=== PATIENT | female | born 1995 ===

== ENCOUNTER 2017-11-20 14:28 | Emergency (ER) | payer OTHER ==
[2017-11-20 14:37] VITALS: RESP 20
[2017-11-20 15:52] LABS: BASO % 0.4 % (0.0-2.0); EOS % 0.3 % (0.0-4.0); HEMATOCRIT 43.6 % (34.0-47.0); LYMPH # 2.3 K/uL (1.0-4.3); LYMPH % 20.5 % (20.0-40.0); MEAN CELL VOLUME 91.7 fL (81.0-99.0); MEAN CORPUSCULAR HEMOGLOBIN 31.1 pg (27.0-31.0); MEAN PLATELET VOLUME 8.1 fL (7.2-11.7); MONO # 0.4 K/uL (0.0-0.8); MONO % 3.5 % (0.0-10.0); RED CELL DISTRIBUTION WIDTH 13.6 % (11.5-14.5); WHITE BLOOD COUNT 11.2 K/uL (4.8-10.8)
[2017-11-20 15:54] LABS: RBC URINE < 1 /hpf (0-3); URINE BILIRUBIN NEGATIVE (NEGATIVE); URINE BLOOD NEGATIVE (NEGATIVE); URINE COLOR Colorless (YELLOW); URINE GLUCOSE (UA) NORMAL (Normal); URINE KETONE NEGATIVE (NEGATIVE); URINE LEUKOCYTE ESTERASE NEG Leu/uL (Negative); URINE PROTEIN NEGATIVE (NEGATIVE); URINE UROBILINOGEN NORMAL mg/dL (0.2-1.0)
[2017-11-20 16:06] LABS: BILIRUBIN,TOTAL 0.8 mg/dL (0.2-1.3); CALCIUM 9.6 mg/dl (8.6-10.4); GFR AFRICAN-AMERICAN > 60; GLUCOSE,RANDOM 90 mg/dL (65-105); TOTAL PROTEIN 9.3 g/dL (6.3-8.3)
[2017-11-20 16:07] LABS: ALB/GLOB RATIO 1.1 (1.0-2.1); ALKALINE PHOSPHATASE 80 U/L (38-126); ALT/SGPT 21 U/L (9-52); AST/SGOT 28 U/L (14-36); BLOOD UREA NITROGEN 7 mg/dL (7-17); CARBON DIOXIDE 22 mmol/L (22-30); CHLORIDE 105 mmol/L (98-107); POTASSIUM 4.4 mmol/L (3.6-5.2); SODIUM 141 mmol/L (132-148)
[2017-11-20 16:22] LABS: T3 UPTAKE 28.9 % (23.0-41.0); T4 13.9 ug/dL (5.5-11.0)
--- NOTE | 2017-11-20 16:30 | RAD ---
HISTORY: Palpations COMPARISON: No prior. TECHNIQUE: Chest PA and lateral FINDINGS: LUNGS: No active pulmonary disease. PLEURA: No significant pleural effusion identified. No pneumothorax apparent. CARDIOVASCULAR: Normal. OSSEOUS STRUCTURES: No significant abnormalities. VISUALIZED UPPER ABDOMEN: Normal. OTHER FINDINGS: None. IMPRESSION: No active disease.
[2017-11-20 16:36] LABS: THYROID STIMULATING HORMONE 2.38 mIU/L (0.46-4.68)
--- NOTE | 2017-11-20 17:05 | C.PDOC ---
History Of Present Illness 22 y/o female presents to the ED c/o palpations and feeling anxious for one month preceded by flu like symptoms . Flu like symptoms have since resolved , the patient denies chest pain, SOB, nausea, diarrhea, and drug abuse. No caffeine or drug use, no alcohol use. Time Seen by Provider: 11/20/17 15:19 Chief Complaint (Nursing): Palpitations History Per: Patient Onset/Duration Of Symptoms: Days Current Symptoms Are (Timing): Still Present Additional History Per: Patient Past Medical History Reviewed: Historical Data, Nursing Documentation, Vital Signs Vital Signs: Last Vital Signs Temp 98.6 F 11/20/17 17:14 Pulse 100 H 11/20/17 17:14 Resp 20 11/20/17 17:14 BP 118/73 11/20/17 17:14 Pulse Ox 100 11/20/17 17:53 Surgical History: No Surg Hx Family History: States: No Known Family Hx - Social History Hx Alcohol Use: Yes Hx Substance Use: No - Immunization History Hx Tetanus Toxoid Vaccination: No Hx Influenza Vaccination: No Hx Pneumococcal Vaccination: No Review Of Systems Except As Marked, All Systems Reviewed And Found Negative. Constitutional: Negative for: Fever Cardiovascular: Positive for: Palpitations Respiratory: Negative for: Cough, Shortness of Breath Gastrointestinal: Negative for: Nausea, Diarrhea Skin: Negative for: Rash, Bruising Physical Exam - Physical Exam Appears: No Acute Distress, Other (benign ) Skin: Dry Head: Atraumatic, Normacephalic Eye(s): bilateral: PERRL Oral Mucosa: Moist Neck: Supple Chest: Symmetrical Cardiovascular: Rhythm Regular Respiratory: Normal Breath Sounds Gastrointestinal/Abdominal: Normal Exam, Bowel Sounds, Soft Back: Normal Inspection Extremity: Normal ROM Pulses: Left Dorsalis Pedis: Normal, Right Dorsalis Pedis: Normal Neurological/Psych: Oriented x3, Normal Speech, Normal Cognition ED Course And Treatment - Laboratory Results Result Diagrams: 11/20/17 15:48 11/20/17 15:48 ECG Rhythm: Sinus Rhythm (95 bpm) ECG Interpretation: Normal (and no st/t wave changes ) O2 Sat by Pulse Oximetry: 100 (RA) Progress Note: Upon reassessment, The patient received [place] and the patient states improvement. The t4 is slightly elevated and the patient is advised to meet with a family doctor. Medical Decision Making Medical Decision Making: HISTORY: Palpations COMPARISON: No prior. TECHNIQUE: Chest PA and lateral FINDINGS: LUNGS: No active pulmonary disease. PLEURA: No significant pleural effusion identified. No pneumothorax apparent. CARDIOVASCULAR: Normal. OSSEOUS STRUCTURES: No significant abnormalities. VISUALIZED UPPER ABDOMEN: Normal. OTHER FINDINGS: None. IMPRESSION: No active disease. palpitations - discussed results with patient including slightly elevated t4 and advised patient to follow up with her family doctor for ongoing evaluation. Patient states improvement in symptoms during ER course. Disposition Counseled Patient/Family Regarding: Studies Performed, Diagnosis, Need For Followup, Rx Given - Disposition Referrals: [facility] [Outside] Disposition: HOME/ ROUTINE Disposition Time: 17:03 Condition: STABLE Additional Instructions: follow up with your doctor or medical clinic in 2 days call to make an appointment your thyroid test is slightly elevated and need to be addressed by your doctor take medications as needed for anxiety return to hospital if symptoms worsens or progress Prescriptions: ALPRAZolam [Xanax] 0.25 mg PO TID PRN #8 tab PRN Reason: Anxiety Instructions: Palpitations (ED) Forms: [facility] (Czech), General Discharge Instructions - Clinical Impression Clinical Impression: Palpitations - Scribe Statement The provider has reviewed the documentation as recorded by the Scribe Josephine Austin
[2017-11-20 17:15] VITALS: BP 118/73; PULSE 100; TEMP 98.6
[2017-11-20 21:02] VITALS: O2SAT 100
--- NOTE | 2017-11-21 15:45 | CARD ---
APPROVED REPORT EKG Measurement Heart [id number] <Conclusion> Normal sinus rhythm with sinus arrhythmia Normal ECG
== END 2017-11-20 17:16 | disposition home or self-care (01) ==
LOC: C.ER 14:28
DX: R00.2 Palpitations (principal)